=== PATIENT | male | born 1985 | race Two or more races ===

== ENCOUNTER 2017-07-11 00:42 | Emergency (ER) | payer SELFPAY ==
[2017-07-11] MEDS ORDERED: Famotidine TAB* 20 MG PO ONE (01:26)
[2017-07-11] MEDS ORDERED: LORazepam INJ* 2 MG/ML 1 ML VIAL IM ONE (01:26)
[2017-07-11 01:52] VITALS: BP 153/95
--- NOTE | 2017-07-11 02:45 | ED ---
Lisset Wesley Emily, scribed for Mich Mclaughlin MD on 07/11/17 at 0130 . Complex/Multi-Sys Presentation - HPI Summary HPI Summary: This patient is a 32 year old M presenting to [facility] accompanied by friends with a chief complaint of uncontrolled shaking that began [employer]. Pt reports waking up and was breathing fast, had cold and cramping hands. The patient rates the pain 0/10 in severity. Symptoms aggravated by nothing. Symptoms alleviated by nothing. Patient reports nausea, sore throat, cold hands, and cramping hands. Patient denies fever. - History Of Current Complaint Chief Complaint: EDGeneral Time Seen by Provider: 07/11/17 01:09 Hx Obtained From: Patient Onset/Duration: Sudden Onset, Lasting Hours, Still Present Timing: Constant Severity Currently: Mild Severity Initially: Mild Aggravating Factor(s): Nothing Alleviating Factor(s): Nothing Associated Signs And Symptoms: Positive: Other - Positive nausea, sore throat, cold hands, and cramping hands. Negative fever - Allergies/Home Medications Allergies/Adverse Reactions: Allergies Allergy/AdvReac Type Severity Reaction Status Date / Time No Known Allergies Allergy Verified 07/11/17 00:51 Home Medications: Home Medications NK [No Home Medications Reported] 07/11/17 [History Confirmed 07/11/17] PMH/Surg Hx/FS Hx/Imm Hx Previously Healthy: Yes Opthamlomology History: Denies: Hx Legally Blind EENT History: Denies: Hx Deafness Infectious Disease History: No Infectious Disease History: Denies: Traveled Outside the [place] in Last 30 Days - Family History Known Family History: Negative: Cardiac Disease, Hypertension - Social History Occupation: Employed Full-time Lives: With Family Alcohol Use: Occasionally Hx Substance Use: No Substance Use Type: Reports: None Hx Tobacco Use: No Smoking Status (MU): Never Smoked Tobacco Review of Systems Positive: Other - Positive uncontrolled shaking. Negative: Fever Positive: Sore Throat Positive: Nausea Positive: Other - Positive cramping hands Positive: Other - Positive cold hands All Other Systems Reviewed And Are Negative: Yes Physical Exam - Summary Physical Exam Summary: Appearance: Well appearing, no pain distress Skin: warm, dry, reflects adequate perfusion Head/face: normal Eyes: EOMI, ELI ENT: normal Neck: supple, non-tender Respiratory: CTA, breath sounds present Cardiovascular: RRR, pulses symmetrical Abdomen: non-tender, soft Bowel Sounds: present Musculoskeletal: normal, strength/ROM intact Neuro: normal, sensory motor intact, A&Ox3 Psych: repetitive head bobbing Triage Information Reviewed: Yes Vital Signs On Initial Exam: Initial Vitals Temp Pulse Resp BP Pulse Ox 97.9 F 94 18 147/78 99 07/11/17 00:47 07/11/17 00:47 07/11/17 00:47 07/11/17 00:47 07/11/17 00:47 Vital Signs Reviewed: Yes Diagnostics - Vital Signs Vital Signs Temp Pulse Resp BP Pulse Ox 07/11/17 00:47 97.9 F 94 18 147/78 99 - Laboratory Lab Statement: Any lab studies that have been ordered have been reviewed, and results considered in the medical decision making process. - EKG 0206 Cardiac Rate: NL EKG Rhythm: Sinus Rhythm - [address] Segment: Normal EKG Interpretation: Normal axis intervals. Elevated j point Complex Multi-Symp Course/Dx Course Of Treatment: Patient with abrupt onset of fast heart rate, cramping in his hands, anxiety and breathing fast. It is largely resolved by the time he arrived here. His EKG is normal. His vitals are all within normal limits. He was given Ativan which further reduced and resolved his symptoms. Likely panic attack. No reported drug or alcohol use. - Diagnoses Provider Diagnoses: Anxiety reaction Discharge - Sign-Out/Discharge Documenting (check all that apply): Discharge/Admit/Transfer - Discharge Plan Condition: Improved Disposition: HOME Patient Education Materials: Panic Attack (ED) Print Language: [place] Referrals: [facility] REFERRAL [Outside] Additional Instructions: Retorna si es peor, nuevos sntomas u otras preocupaciones. No april alcohol ni use drogas. Los ejercicios de respiracin pueden ayudar si esto se repite. Llam al nmero proporcionado el lunes para establecer con un mdico que pueda seguirlo. - Billing Disposition and Condition Condition: IMPROVED Disposition: HOME The documentation as recorded by the Lisset scales Emily accurately reflects the service I personally performed and the decisions made by , Mich Mclaughlin MD.
== END 2017-07-11 03:01 | disposition home or self-care (01) ==
LOC: ED 00:42
DX: F41.1 Generalized anxiety disorder (principal)
CPT/HCPCS: 93005; 96372; 99282; A9270-GY; J2060